=== PATIENT | male | born 1940 | race Caucasian/White ===

== ENCOUNTER 2022-08-09 08:04 | Inpatient (IN) | payer BC ==
[~2022-08-09] VITALS: Ht 165.1 cm; Wt 72.6 kg
[2022-08-09] VITALS (17 sets, daily range): BP systolic 82–132
--- NOTE | 2022-08-09 08:05 | NUR ---
Placed in room 02 . Placed on satellite project site monitor, blood pressure machine and pulse oximeter. To gown for exam. Side rails up. Report given to ANA RUSSO.
[2022-08-09] MEDS ORDERED: VANCOMYCIN HCL 1,000 MG in NS 250 ML IV ONE (08:15)
[2022-08-09] MEDS ORDERED: MEROPENEM 1 GM IVPB PREMIX 50 ML IV ONE (08:15)
[2022-08-09] MEDS ORDERED: VANCOMYCIN HCL 1000 MG/VIAL IV ONE (08:46)
--- NOTE | 2022-08-09 08:50 | NUR ---
RT NOTES 0858 BAGGED PT KANDACE 15L BVM. ORAL SXN READY. 0850 PT GOT INBUTAED BY MD LINDSAY. CO2 DETECTOR COLOR CHANGED. TARA BS HEARD. PT PLACED ON AC16,400VT PEEP +5 100%, 7.5/22CM LL. ETT CONFIRMED PLACEMENT W/ CXR. SPUTUM SAMPLE SENT TO LAB.
--- NOTE | 2022-08-09 08:50 | NUR ---
RT AT BEDSIDE W/ DR LINDSAY, PT BEING INTIBATED.
--- NOTE | 2022-08-09 08:56 | NUR ---
CHEST X RAY BEING DONE AT BEDSIDE
[2022-08-09] MEDS ORDERED: PROPOFOL DRIP 100 ML IV ONE (09:00)
[2022-08-09] MEDS ORDERED: ETOMIDATE 20 MG/ 10 ML VIAL (AMIDATE) IVP ONE (09:00)
[2022-08-09] MEDS ORDERED: SUCCINYLCHOLINE CHLORIDE 20 MG/ML(QUELICIN) IVP ONE (09:00)
[2022-08-09 09:14] LABS: BASOPHILS % (AUTO) 0.1 % (0.0-2.0); HEMOGLOBIN 14.2 g/dL (14.0-18.0); LYMPHOCYTES # (AUTO) 0.6 K/uL (1.0-5.5); LYMPHOCYTES % (AUTO) 2.6 % (20.5-51.5); MEAN CORPUSCULAR HEMOGLOBIN 29 pg (27-31); MEAN CORPUSCULAR HGB CONC 32 % (32-36); MEAN CORPUSCULAR VOLUME 91 fL (79.0-98.0); MONOCYTES # (AUTO) 1.3 K/uL (0.0-1.0); MONOCYTES % (AUTO) 5.6 % (1.7-9.3); NEUTROPHILS # (AUTO) 21.7 K/uL (1.8-7.7); PLATELET COUNT (AUTO) 378 K/uL (130-430); RED BLOOD CELL COUNT(AUTO) 4.83 MIL/uL (4.2-6.2); RED CELL DISTRIBUTION WIDTH 16.7 % (9.0-15.0); WHITE BLOOD COUNT (AUTO) 23.7 K/uL (4.8-10.8)
[2022-08-09 09:15] LABS: ALANINE AMINOTRANSFERASE 28 U/L (12-78); ALBUMIN 2.3 g/dL (3.4-4.8); ANION GAP 11 (5-15); ASPARTATE AMINOTRANSFERASE 35 U/L (10-37); CALCIUM 8.3 mg/dL (8.4-11.0); CHLORIDE 109 mmol/L (98-107); CREATININE 1.79 mg/dL (0.55-1.30); GLUCOSE 158 mg/dL (70-99); UREA NITROGEN, BLOOD 59 mg/dL (8-21)
--- NOTE | 2022-08-09 09:41 | NUR ---
DAUGHTER INFO GARY
[2022-08-09 10:25] LABS: NEUTROPHILS % (AUTO) 91.7 % (40.0-70.0)
--- NOTE | 2022-08-09 10:29 | NUR ---
PT BIB EMS FROM [facility] WITH C/O DISORIENTATION AND CONFUSION. PT HAS A HISTORY OF SEIZURES, DEPRESSION, AND GERD. AOX0 WITH BRONCHI HEARD IN BOTH LUNGS. SPO2 SATTING IN THE 80'S PT CAME IN WITH A NON-REBREATHER ON 15 L OF O2.
[2022-08-09 10:39] LABS: BILIRUBIN,URINE 2+ (NEGATIVE); BLOOD, URINE NEGATIVE (NEGATIVE); CLARITY/URINE CLEAR (CLEAR); GLUCOSE,URINE TRACE (NEGATIVE); KETONES,URINE NEGATIVE (NEGATIVE); LEUKOCYTE ESTERASE ,URINE NEGATIVE (NEGATIVE); NITRITE, URINE POSITIVE (NEGATIVE); PROTEIN URINE TRACE (NEGATIVE)
[2022-08-09 10:45] LABS: COLOR,URINE AMBER (YELLOW); UROBILINOGEN,URINE >=8 (0.2-1.0)
[2022-08-09 10:54] LABS: BACTERIA,URINE RARE /HPF (None Seen); RBC,URINE 0-3 /HPF (0-3); WBC,URINE 0-3 /HPF (0-3)
[2022-08-09 10:55] LABS: HYALINE CASTS, URINE 0-5 /LPF (None Seen); MUCUS,URINE 2+ /LPF (None Seen)
--- NOTE | 2022-08-09 13:30 | NUR ---
PROPOFAL DOSAGE INCREASE BY 5MCG TO 10 MCG/KG/ML.
[2022-08-09] MEDS ORDERED: NACL 0.9% 1,500 ML IV ONE (14:00)
--- NOTE | 2022-08-09 14:18 | NUR ---
Admit bed requested Patient will be admitted to care of Dr. MARIEE. Admitted to ICU unit. Diagnosis ACUTE RESPIRATORY FAILURE Inpatient (Yes or No) YES Observation (Yes or No) NO Orientation concerns or request close to nursing station (Yes or No) NO Covid Status NA On vent or bipap VENT Isolation requirements NO Needs a sitter NO From Home (Yes or if No enter name of facility) [facility] Requires Dialysis (Yes or No) NO Med Rec Completed (Yes of No) YES
[2022-08-09] MEDS ORDERED: SER25 PO (14:30)
[2022-08-09] MEDS ORDERED: LEVE500T9 PO (14:30)
[2022-08-09] MEDS ORDERED: TAMS-11 PO (14:30)
[2022-08-09] MEDS ORDERED: SODIUM CHLORIDE PO (14:30)
[2022-08-09] MEDS ORDERED: MULT-1117 PO (14:30)
[2022-08-09] MEDS ORDERED: POTASSIUM CHLORIDE 20 MEQ TAB.PRT.SR PO PRN (15:15)
[2022-08-09] MEDS ORDERED: NALOXONE HCL 0.4 MG/ML AMP (NARCAN) IVP PRN ×2 (15:15)
[2022-08-09] MEDS ORDERED: ACETAMINOPHEN 325 MG TABLET PO PRN ×2 (15:15→16:30)
[2022-08-09] MEDS ORDERED: MORPHINE 2 MG/ML INJ. SYRINGE IVP PRN (15:15)
[2022-08-09] MEDS ORDERED: LORazepam 2 MG/ML VIAL IVP PRN (15:15)
[2022-08-09] MEDS ORDERED: MUPIROCIN 2% TOPICAL OINTMENT 22 GM NS PRN (15:15)
[2022-08-09] MEDS ORDERED: MAGNESIUM SULFATE 50 ML IV PRN (15:15)
[2022-08-09] MEDS ORDERED: DOCUSATE SODIUM 100 MG CAPSULE PO PRN (15:15)
[2022-08-09] MEDS ORDERED: ONDANSETRON HCL 4 MG/2 ML VIAL IVP PRN ×2 (15:15→16:00)
--- NOTE | 2022-08-09 15:27 | NUR ---
Call out to DIONI niño MD for orders.
--- NOTE | 2022-08-09 15:40 | NUR ---
Patient will be admitted to care of RN. Admitted to unit. Will go to room . Belongings list completed. Complete and up to date summary report printed. SBAR report to be given at bedside with opportunity for questions. Addendum: 08/09/22 at 1618 by [email or web address] Patient will be admitted to care of Dr. Hogan. Admitted to unit. Will go to room . Belongings list completed. Complete and up to date summary report printed. SBAR report to be given at bedside with opportunity for questions.
--- NOTE | 2022-08-09 15:43 | NUR ---
S/W admitting [facility] and requested admitting physician to be changed to [facility] Dr. Jensen.
[2022-08-09] MEDS ORDERED: NOREPINEPHRINE BITARTRATE 4 MG in NS 246 ML IV PRN (18:00)
[2022-08-09] MEDS: PIPERACILLIN/TAZO 2.25G/DEX-IS 50 ML IV SCH ×2 (18:29→23:44)
[2022-08-09] MEDS: D5NS 1,000 ML IV SCH (18:29)
[2022-08-09] MEDS ORDERED: FLU VACC QS2022-23(6MOS UP)/PF 0.5 ML/SYR SYRINGE I.M. PRN (20:30)
[2022-08-09] MEDS: HEPARIN SODIUM,PORCINE 5,000 UNITS/ML VIAL SUBCUT SCH (21:00)
[2022-08-10] VITALS (29 sets, daily range): BP systolic 89–154
[2022-08-10] MEDS: D5NS 1,000 ML IV SCH ×3 (01:15→21:14)
[2022-08-10] MEDS: PIPERACILLIN/TAZO 2.25G/DEX-IS 50 ML IV SCH ×3 (05:13→17:19)
[2022-08-10 05:14] LABS: BASOPHILS % (AUTO) 0.1 % (0.0-2.0); EOSINOPHILS % (AUTO) 0.1 % (0.0-4.0); HEMATOCRIT 37.9 % (36-54); HEMOGLOBIN 12.2 g/dL (14.0-18.0); LYMPHOCYTES # (AUTO) 0.6 K/uL (1.0-5.5); LYMPHOCYTES % (AUTO) 3.8 % (20.5-51.5); MEAN CORPUSCULAR HEMOGLOBIN 29 pg (27-31); MEAN CORPUSCULAR HGB CONC 32 % (32-36); MEAN CORPUSCULAR VOLUME 91 fL (79.0-98.0); MONOCYTES # (AUTO) 0.9 K/uL (0.0-1.0); MONOCYTES % (AUTO) 5.6 % (1.7-9.3); NEUTROPHILS # (AUTO) 14.9 K/uL (1.8-7.7); NEUTROPHILS % (AUTO) 90.4 % (40.0-70.0); PLATELET COUNT (AUTO) 287 K/uL (130-430); RED BLOOD CELL COUNT(AUTO) 4.15 MIL/uL (4.2-6.2); RED CELL DISTRIBUTION WIDTH 16.4 % (9.0-15.0); WHITE BLOOD COUNT (AUTO) 16.6 K/uL (4.8-10.8)
[2022-08-10 05:42] LABS: ANION GAP 10 (5-15); CALCIUM 7.5 mg/dL (8.4-11.0); CHLORIDE 114 mmol/L (98-107); CREATININE 2.32 mg/dL (0.55-1.30); GLUCOSE 171 mg/dL (70-99); UREA NITROGEN, BLOOD 77 mg/dL (8-21)
[2022-08-10] MEDS: PANTOPRAZOLE SODIUM 40 MG/VIAL (PROTONIX) IVP SCH (08:06)
[2022-08-10] MEDS: HEPARIN SODIUM,PORCINE 5,000 UNITS/ML VIAL SUBCUT SCH ×2 (08:12→21:14)
[2022-08-10] MEDS: PROPOFOL DRIP 100 ML IV PRN ×2 (08:16→17:45)
--- NOTE | 2022-08-10 16:09 | NUR ---
Landing Worker re: director of social services referral Conversation held with ANA Wilkinson this morning about the need for the director of social services consult. Per nurse, the consult was put in due to conflicting information regarding the patient between the daughter and the SNF where he came from. I reached out to the daughter, Ericka, to complete a social service assessment of the patient however she was out with company for dinner and requested I call her back tomorrow. I advised her that I would call back tomorrow for us to discuss.
[2022-08-11] VITALS (31 sets, daily range): BP systolic 111–160
[2022-08-11] MEDS: PIPERACILLIN/TAZO 2.25G/DEX-IS 50 ML IV SCH ×4 (00:50→17:32)
[2022-08-11] MEDS: D5NS 1,000 ML IV SCH ×2 (05:31→11:07)
[2022-08-11 05:58] LABS: BASOPHILS % (AUTO) 0.1 % (0.0-2.0); EOSINOPHILS # (AUTO) 0.1 K/uL (0.0-0.4); EOSINOPHILS % (AUTO) 0.4 % (0.0-4.0); HEMATOCRIT 36.7 % (36-54); HEMOGLOBIN 11.8 g/dL (14.0-18.0); LYMPHOCYTES # (AUTO) 0.8 K/uL (1.0-5.5); MEAN CORPUSCULAR HEMOGLOBIN 29 pg (27-31); MEAN CORPUSCULAR HGB CONC 32 % (32-36); MEAN CORPUSCULAR VOLUME 92 fL (79.0-98.0); MONOCYTES # (AUTO) 0.9 K/uL (0.0-1.0); MONOCYTES % (AUTO) 6.7 % (1.7-9.3); NEUTROPHILS # (AUTO) 11.9 K/uL (1.8-7.7); NEUTROPHILS % (AUTO) 86.8 % (40.0-70.0); PLATELET COUNT (AUTO) 255 K/uL (130-430); RED BLOOD CELL COUNT(AUTO) 4.01 MIL/uL (4.2-6.2); RED CELL DISTRIBUTION WIDTH 16.6 % (9.0-15.0); WHITE BLOOD COUNT (AUTO) 13.7 K/uL (4.8-10.8)
[2022-08-11 06:16] LABS: ALANINE AMINOTRANSFERASE 25 U/L (12-78); ALBUMIN 1.7 g/dL (3.4-4.8); ANION GAP 9 (5-15); ASPARTATE AMINOTRANSFERASE 41 U/L (10-37); C-REACTIVE PROTEIN QUANT 35.9 mg/dL (0-0.5); CALCIUM 7.7 mg/dL (8.4-11.0); CHLORIDE 117 mmol/L (98-107); CREATININE 1.55 mg/dL (0.55-1.30); GLUCOSE 174 mg/dL (70-99); PHOSPHORUS 3.8 mg/dL (2.7-4.5); TOTAL BILIRUBIN 0.8 mg/dL (0.0-1.0); UREA NITROGEN, BLOOD 73 mg/dL (8-21)
[2022-08-11 06:42] LABS: ERYTHROCYTE SEDIMENTATION RATE 70 MM/HR (0-15)
--- NOTE | 2022-08-11 07:20 | NUR ---
RT NOTES FIO2 to 0.50 per titration order, will monitor pt. ANA Waldrop made aware.
[2022-08-11] MEDS: PANTOPRAZOLE SODIUM 40 MG/VIAL (PROTONIX) IVP SCH (08:08)
[2022-08-11] MEDS: HEPARIN SODIUM,PORCINE 5,000 UNITS/ML VIAL SUBCUT SCH ×2 (08:08→21:00)
--- NOTE | 2022-08-11 09:10 | NUR ---
RT NOTES FIO2 TO 0.40. Will monitor pt. RN /Tim made aware.
--- NOTE | 2022-08-11 10:26 | NUR ---
RT NOTES PEEP to 5 per order, will monitor pt. RN aware
--- NOTE | 2022-08-11 11:25 | NUR ---
RT NOTES Coordinated with RN, vent to CPAP 5 PS 10. No adverse reactions noted. Although the pt did not wake up, no apneic episodes noted. Will monitor pt.
--- NOTE | 2022-08-11 11:35 | NUR ---
RT NOTES Pt cont. to tolerate CPAP. FIO2 to 0.30. Rn aware.
--- NOTE | 2022-08-11 13:25 | NUR ---
RT NOTES end cpap pt tolerated cpap for 2 hours. average RSBI 33. did not wake up despite being off of sedation. vent back to previous settings PC 18 RR 16 +5 30%. rn aware
[2022-08-11] MEDS: 0.45% NACL 1,000 ML IV SCH ×2 (14:32→23:30)
--- NOTE | 2022-08-11 18:04 | NUR ---
GOLD COLOR RING REMOVED FROM LEFT HAND RING FINGER WITH RING CUTTERS DUE TO PATIENT FINGER EDEMA. GOLD RING SENT WITH SECURITY OXANA TO BE PLACED IN SAFE. COPY OF FORM FOR SAFE PLACED IN PATIENT CHART.
[2022-08-11] MEDS: PROPOFOL DRIP 100 ML IV PRN (18:30)
[2022-08-12] VITALS (29 sets, daily range): BP systolic 11–136
[2022-08-12] MEDS: PIPERACILLIN/TAZO 2.25G/DEX-IS 50 ML IV SCH ×4 (01:06→17:29)
[2022-08-12 05:33] LABS: BASOPHILS % (AUTO) 0.1 % (0.0-2.0); EOSINOPHILS % (AUTO) 0.3 % (0.0-4.0); HEMATOCRIT 36.8 % (36-54); HEMOGLOBIN 11.6 g/dL (14.0-18.0); LYMPHOCYTES # (AUTO) 0.6 K/uL (1.0-5.5); LYMPHOCYTES % (AUTO) 4.9 % (20.5-51.5); MEAN CORPUSCULAR HEMOGLOBIN 29 pg (27-31); MEAN CORPUSCULAR HGB CONC 31 % (32-36); MEAN CORPUSCULAR VOLUME 91 fL (79.0-98.0); MONOCYTES # (AUTO) 1.2 K/uL (0.0-1.0); MONOCYTES % (AUTO) 9.9 % (1.7-9.3); NEUTROPHILS # (AUTO) 10.7 K/uL (1.8-7.7); NEUTROPHILS % (AUTO) 84.8 % (40.0-70.0); PLATELET COUNT (AUTO) 243 K/uL (130-430); RED BLOOD CELL COUNT(AUTO) 4.04 MIL/uL (4.2-6.2); RED CELL DISTRIBUTION WIDTH 16.7 % (9.0-15.0); WHITE BLOOD COUNT (AUTO) 12.6 K/uL (4.8-10.8)
[2022-08-12 05:46] LABS: ANION GAP 11 (5-15); C-REACTIVE PROTEIN QUANT 13.7 mg/dL (0-0.5); CALCIUM 7.8 mg/dL (8.4-11.0); CHLORIDE 117 mmol/L (98-107); CREATININE 1.38 mg/dL (0.55-1.30); GLUCOSE 151 mg/dL (70-99); PHOSPHORUS 3.9 mg/dL (2.7-4.5); UREA NITROGEN, BLOOD 62 mg/dL (8-21)
[2022-08-12 07:10] LABS: ERYTHROCYTE SEDIMENTATION RATE 86 MM/HR (0-15)
[2022-08-12] MEDS: HEPARIN SODIUM,PORCINE 5,000 UNITS/ML VIAL SUBCUT SCH ×2 (08:58→21:48)
[2022-08-12] MEDS: 0.45% NACL 1,000 ML IV SCH ×2 (08:59→21:42)
[2022-08-12] MEDS: PANTOPRAZOLE SODIUM 40 MG/VIAL (PROTONIX) IVP SCH (08:59)
--- NOTE | 2022-08-12 09:47 | NUR ---
NOTIFIED DR JAMI BERMUDEZ OF BRADYCARDIA. ORDERED TO CONSULT DR JAMI MANJARREZ AND STAT EKG. DR JAMI MANJARREZ CONSULTED.
--- NOTE | 2022-08-12 10:04 | NUR ---
DR JAMI MANJARREZ AT BEDSIDE AND EXAMINED PATIENT. VIEWED EKG. ORDERED TO CONTINUE MONITORING.
[2022-08-12 10:13] LABS: FREE T4 (FREE THYROXINE) 0.9 ng/dL (0.6-1.6); THYROID STIMULATING HORMONE 1.17 uIu/mL (0.34-4.82)
--- NOTE | 2022-08-12 12:05 | NUR ---
Dietitian Recommendations * Nepro at 40 ml/hr (goal rate), Free Water Flush: per physician d/t ARABELLA via NGT Provides: 1728 kcal/day, 78 gm protein/day, and 698 ml free water/day Meets: 101% of estimated caloric needs and 107% of lower end of estimated protein needs LP, MS, RD Please refer to Nutrition Assessment for details. Addendum: 08/12/22 at [address] Amended: Links added.
--- NOTE | 2022-08-12 13:40 | NUR ---
RT NOTES per Caitlin Granados, @1318, Dr Guerin rounded, changed vent to CPAP. No distress noted. H.R remains low. Will monitor pt.
--- NOTE | 2022-08-12 14:55 | NUR ---
WOUND EVALUATION: Late note for 08/12/2022 at 1455 secondary to patient care. Wound Consult received from Dr. Espinoza Jensen. Thank you, Dr. Jensen, for the consult. Patient received in a Marko Bed with an Isoflex SHEKHAR mattress, nonverbal, nonresponsive to verbal commands, obtunded. Patient is unable to turn in bed independently. Dov Score is a . Past Medical History: Status post CVA, Chronic Vegetative State, Depression, muscle contractures, GERD, Seizure disorder, Esophagitis and COVID Pneumonia. Recent Labs: WBC 12.6, RBC 4.04, hemoglobin 11.6, hematocrit 36.8, ESR 86, sodium 150, chloride 117, BUN 62, creatinine 1.38, glucose 151, C-reactive protein 13.7, serum total protein 5.4, albumin 1.7. Microbiology: Blood culture results x2 in progress. Endotracheal sputum culture results negative. Urine culture results negative. Skin fungal culture results in progress. Intrinsic factors that delay wound healing: Severe Hypoalbuminemia, Hyperglycemia, respiratory failure, bilateral pneumonia, Acute Kidney Injury, Sepsis. Extrinsic factors that delay wound healing: Immobility. Per assessment by Dr. Jensen: IMPRESSION: * General weakness. * Altered level of consciousness. * Respiratory failure. * Bilateral pneumonia. * Sepsis. * Leukocytosis. * Acute kidney injury. * Hyperglycemia. * Hypercalcemia. * Hypoalbuminemia. Per assessment by Dr. 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 Left Distal Degroot: Excoriation, present on admission. Excoriated Degroot is dry with brown scab. No odor, no drainage. Narda-wound intact. Recommend: No dressing needed. Continue to monitor site every shift. 2. Left Lateral Malleolus: Small area of dark discoloration. No odor, no drainage. Tissue feels normal to touch, area is not soft or boggy. Skin is intact. 3. Left Lateral Mid Foot: Small area of dark discoloration. No odor, no drainage. Tissue feels normal to touch, area is not soft or boggy. Skin is intact. 4. Left Medial First Metatarsal Head: Blanchable redness. Skin is intact. 5. Right Lateral Malleolus: Small area of dark discoloration. No odor, no drainage. Tissue feels normal to touch, area is not soft or boggy. Skin is intact. Recommend: Cover sites with foam dressings for protection. Offload sites at all times. 6. Right Lateral First Metatarsal Head: Small area of dark discoloration. No odor, no drainage. Tissue feels normal to touch, area is not soft or boggy. Skin is intact. Recommend: Cover sites with foam dressings for protection. Offload sites at all times. 7. Left Back, Left Lateral to Spinal Levels T6-T8: Multiple skin tears, superficial depth. Site has 100% pink tissue. No odor, no drainage. Site measures 3.7 cm x 10.6 cm. Recommend: Cleanse site with normal saline. Apply SurePrep to narda-skin tear. Cover with oil emulsion dressing, then nonadhesive foam dressing. Secure with transparent dressings. Perform site care daily, and as needed for dressing soiling or dislodgement. 8. Left Sacral area: sDTI. Site has dark discolored skin. Surrounding tissue has blanchable redness. No odor, no drainage. Skin is intact. Site measures 14.0 cm x 7.0 cm. Recommend: [place] site with Betadine. Allow Betadine to air dry. Cover site with sacral foam dressing. Perform site care daily, and as needed for dressing soiling or dislodgment. Assess site every shift with peel and peak technique. Also recommend: Reposition patient side to side only every 2 hours with 1 pillow underneath pelvis and 1 pillow underneath trunk bilaterally (initiate turning by using an additional pillow to reposition patient left and right acute 2 hours). Off-load pressure areas with pillows for pressure re-distribution. Offload, elevate and float bilateral heels with 1 pillow lengthwise under each extremity at all times. Perform skin care and monitor skin integrity Q shift. Use moisture barrier cream on buttocks and other moisture susceptible areas QID and as needed for soiling. Place patient on a P500 low air-loss mattress.
--- NOTE | 2022-08-12 15:40 | NUR ---
RT NOTES Pt tolerated CPAP for a little over 2 hour trial. No change in mentation (did not wake up). Vent back to PC 18 RR 16 +5.
[2022-08-13] VITALS (35 sets, daily range): BP systolic 64–155
[2022-08-13] MEDS: PIPERACILLIN/TAZO 2.25G/DEX-IS 50 ML IV SCH ×2 (00:35→06:24)
[2022-08-13 05:19] LABS: BASOPHILS % (AUTO) 0.2 % (0.0-2.0); EOSINOPHILS # (AUTO) 0.1 K/uL (0.0-0.4); EOSINOPHILS % (AUTO) 0.4 % (0.0-4.0); HEMATOCRIT 36.4 % (36-54); HEMOGLOBIN 11.6 g/dL (14.0-18.0); LYMPHOCYTES % (AUTO) 7.6 % (20.5-51.5); MEAN CORPUSCULAR HEMOGLOBIN 29 pg (27-31); MEAN CORPUSCULAR HGB CONC 32 % (32-36); MEAN CORPUSCULAR VOLUME 90 fL (79.0-98.0); MONOCYTES # (AUTO) 1.7 K/uL (0.0-1.0); MONOCYTES % (AUTO) 12.3 % (1.7-9.3); NEUTROPHILS # (AUTO) 10.8 K/uL (1.8-7.7); NEUTROPHILS % (AUTO) 79.5 % (40.0-70.0); PLATELET COUNT (AUTO) 270 K/uL (130-430); RED BLOOD CELL COUNT(AUTO) 4.03 MIL/uL (4.2-6.2); RED CELL DISTRIBUTION WIDTH 16.3 % (9.0-15.0); WHITE BLOOD COUNT (AUTO) 13.6 K/uL (4.8-10.8)
[2022-08-13 06:08] LABS: ALANINE AMINOTRANSFERASE 33 U/L (12-78); ALBUMIN 1.6 g/dL (3.4-4.8); ANION GAP 10 (5-15); ASPARTATE AMINOTRANSFERASE 33 U/L (10-37); C-REACTIVE PROTEIN QUANT 28.7 mg/dL (0-0.5); CALCIUM 8.1 mg/dL (8.4-11.0); CREATININE 1.18 mg/dL (0.55-1.30); GLUCOSE 148 mg/dL (70-99); TOTAL BILIRUBIN 1.5 mg/dL (0.0-1.0); UREA NITROGEN, BLOOD 46 mg/dL (8-21)
[2022-08-13 06:14] LABS: CHLORIDE 127 mmol/L (98-107)
[2022-08-13] MEDS: LORazepam 2 MG/ML VIAL IVP PRN ×2 (06:20→21:24)
--- NOTE | 2022-08-13 06:20 | NUR ---
Patient's heart rate has increased from 75 to 120 bpm. Oral temperature 99.4, but due to neurological deficits unable to discern if discomfort is pain or anxiety/agitation. Morphine 2 mg ivp and ativan 1 mg ivp given at this time to r/o pain and agitation. will continue to monitor drug administration effectiveness.
[2022-08-13] MEDS: MORPHINE 2 MG/ML INJ. SYRINGE IVP PRN ×2 (06:22→20:45)
[2022-08-13] MEDS: 0.45% NACL 1,000 ML IV SCH ×3 (06:23→20:40)
--- NOTE | 2022-08-13 07:00 | NUR ---
Blood pressure 50/34; after rechecking BP Levophed was started . Dr Amin will be contacted to report abnormal labs and the possibility of fluid changes.
[2022-08-13 07:04] LABS: ERYTHROCYTE SEDIMENTATION RATE 94 MM/HR (0-15)
[2022-08-13] MEDS ORDERED: NOREPINEPHRINE 4 MG/4 ML VIAL IV ONE (07:08)
--- NOTE | 2022-08-13 07:51 | NUR ---
Contacted Dr Nikhil Jensen to report drop in blood pressure and to notify that Levophed was started. Orders received to change concentration of levophed to double concentration meaning 8 mg in 250 D5w instead of NS.
--- NOTE | 2022-08-13 08:00 | NUR ---
NOTED FAINT GAG RESPONSE. PATIENT NO LONGER MOVES LOWER EXTREMITIES OR SCOWLS IN RESPONSE TO PAIN. DR JAMI BERMUDEZ AWARE.
--- NOTE | 2022-08-13 08:00 | NUR ---
received report from enedina moreno. patient is now on levophed because of hypotension. heart rate elevated but trending down. call out to Dr Amin regarding sodium 160 and chloride 127, awaiting call back. Bebeto spoke with Dr abhijit Chowdhury
[2022-08-13] MEDS: NOREPINEPHRINE BITARTRATE 8 MG in D5W 242 ML IV PRN ×3 (08:18→21:43)
[2022-08-13] MEDS: PANTOPRAZOLE SODIUM 40 MG/VIAL (PROTONIX) IVP SCH (08:57)
[2022-08-13] MEDS: HEPARIN SODIUM,PORCINE 5,000 UNITS/ML VIAL SUBCUT SCH (08:59)
--- NOTE | 2022-08-13 09:37 | NUR ---
Dr Guerin rounded on patient ordered to start amiodarone drip to control heart rate and give 500ml NS bolus. Dr Jensen assessed patient and ordered to not start amiodarone drip and give cardizem.
[2022-08-13] MEDS ORDERED: NS 500 ML IV ONE (09:45)
[2022-08-13] MEDS: dilTIAZem HCL IVP 5 MG/ML VIAL IVP PRN ×2 (10:14→20:31)
--- NOTE | 2022-08-13 12:00 | NUR ---
SPOKE WITH DAUGHTER GARY ON THE PHONE AT [phone]. DISCUSSED PATIENT HISTORY AND DAUGHTER STATED THAT PATIENT WAS ALERT, VERBAL, AND [facility]. PER DAUGHTER, DEON PAL NOTIFIED HER THAT THE PATIENT BECAME UNRESPONSIVE 3 DAYS PRIOR TO TRANSFER TO [facility] ER BUT THEY DID NOT TELL HER UNTIL THE DAY OF THE TRANSFER TO ER. IN MD HISTORY AND PHYSICAL IT IS STATED THAT PATIENT IS IN CHRONIC VEGETATIVE STATE, BUT PER DAUGHTER GARY THE PATIENT WAS NOT IN THIS STATE BEFORE THE 3 DAYS PRIOR TO TRANSFER TO ER. CALLED AND NOTIFIED DR DUBOSE AND DR JAMI Gallardo
--- NOTE | 2022-08-13 14:20 | NUR ---
DAUGHTER SPOKE WITH DR DUBOSE AND DECIDED WITH [facility] CHARGE NURSE AND PRIMARY RN ON THE PHONE TO MAKE PATIENT A DNR. CODE FORM SIGNED AND IN THE CHART.
--- NOTE | 2022-08-13 14:26 | NUR ---
Noted loss of gag reflex, pupil reactivity to light, and babinski reflex. paged Dr. Guerin and notified of updates, order CT head without contrast , abg, and to refer to primary physician for neuro consult. Page sent out to Dr Mikey Doran. Awaiting call back.
--- NOTE | 2022-08-13 15:28 | NUR ---
[address] AND BACK TO ICU VIA AMBU BAG WITH 15LPM. PATIENT BACK ON VENT WITH PREVIOUS SETTINGS. SPO2 94%, HR147. NO RESPIRATORY DISTRESS NOTED.
--- NOTE | 2022-08-13 15:29 | NUR ---
CONSULTATION PAGED/CALLED Reason for Consultation: LOSS OF REFLEXES Person Who was Notified: JO ANN Consulting Physician: XOCHITL BULLOCK Actuarial Technician Specialty: [NEUROLOGY Ordering Physician: XOCHITL FARRELL
--- NOTE | 2022-08-13 15:40 | NUR ---
CT SCAN REPORT PAGED DR DUBOSE FOR RESULT OF CT SCAN OF THE BRAIN.
--- NOTE | 2022-08-13 15:50 | NUR ---
MD DR DUBOSE CALLED BACK, MADE HER AWARE OF THE RESULT OF THE BRAIN CT SCAN. SHE ASKED FOR THE PHONE NUMBER OF THE PT'S DAUGHTER LIONEL, STAFF LOOKED IT UP IN THE PT'S CHART. STATED THAT SHE WILL CALL THE FAMILY.
--- NOTE | 2022-08-13 16:11 | NUR ---
SPOKE WITH DR BULLOCK, NOTIFIED OF CT HEAD RESULTS. STATED THAT HE WILL ASSESS PATIENT WHEN HE ROUNDS AT [address] DUBOSE SPOKE WITH PATIENT DAUGHTER GARY AND NOTIFIED OF CT SCAN RESULTS. PER DR DUBOSE THE DAUGHTER DOES NOT WANT ANY SURGERY AND IS GOING TO FLY IN FROM OUT OF STATE TO SEE HER DAD BEFORE STARTING COMFORT MEASURES.
[2022-08-13] MEDS: metroNIDAZOLE 500 mg/NS 100 ML IV SCH ×2 (16:32→22:00)
--- NOTE | 2022-08-13 19:31 | NUR ---
ENDORSED CONTINUATION OF CARE TO ANA CORDOVA
[2022-08-13] MEDS ORDERED: dilTIAZem HCL IVP 5 MG/ML VIAL IVP ONE (22:00)
[2022-08-14] VITALS (19 sets, daily range): BP systolic 37–109
[2022-08-14] MEDS ORDERED: NOREPINEPHRINE 4 MG/4 ML VIAL IV ONE ×4 (00:27→07:45)
[2022-08-14] MEDS: NOREPINEPHRINE BITARTRATE 8 MG in D5W 242 ML IV PRN ×3 (00:34→06:05)
[2022-08-14 06:20] LABS: BASOPHILS # (AUTO) 0.1 K/uL (0.0-0.2); BASOPHILS % (AUTO) 0.3 % (0.0-2.0); EOSINOPHILS # (AUTO) 0.2 K/uL (0.0-0.4); EOSINOPHILS % (AUTO) 1.3 % (0.0-4.0); HEMATOCRIT 36.8 % (36-54); HEMOGLOBIN 11.5 g/dL (14.0-18.0); LYMPHOCYTES # (AUTO) 2.3 K/uL (1.0-5.5); LYMPHOCYTES % (AUTO) 13.6 % (20.5-51.5); MEAN CORPUSCULAR HEMOGLOBIN 29 pg (27-31); MEAN CORPUSCULAR HGB CONC 31 % (32-36); MEAN CORPUSCULAR VOLUME 93 fL (79.0-98.0); MONOCYTES # (AUTO) 1.5 K/uL (0.0-1.0); MONOCYTES % (AUTO) 8.8 % (1.7-9.3); PLATELET COUNT (AUTO) 244 K/uL (130-430); RED BLOOD CELL COUNT(AUTO) 3.98 MIL/uL (4.2-6.2); RED CELL DISTRIBUTION WIDTH 17.1 % (9.0-15.0); WHITE BLOOD COUNT (AUTO) 17.2 K/uL (4.8-10.8)
[2022-08-14 06:46] LABS: ALANINE AMINOTRANSFERASE 36 U/L (12-78); ALBUMIN 1.2 g/dL (3.4-4.8); ANION GAP 11 (5-15); ASPARTATE AMINOTRANSFERASE 40 U/L (10-37); CREATININE 1.62 mg/dL (0.55-1.30); GLUCOSE 178 mg/dL (70-99); TOTAL BILIRUBIN 2.6 mg/dL (0.0-1.0); UREA NITROGEN, BLOOD 44 mg/dL (8-21)
[2022-08-14 06:48] LABS: CHLORIDE 125 mmol/L (98-107)
[2022-08-14] MEDS: metroNIDAZOLE 500 mg/NS 100 ML IV SCH (06:57)
--- NOTE | 2022-08-14 07:25 | NUR ---
SBAR REPORT FROM JADEN RN, ALL CARES ASSUMED. PT INTUBATED, AC 16, PC 18, 100%, 5. HR 130, BP TRENDING DOWN. PUPILS FIXED AND DILATED. NO RESPONSE TO PAINFUL STIMULI. NO GAG REFLEX. AWAITING DAUGHTER TO FLY IN FROM [place] TO START COMFORT MEASURES.
[2022-08-14] MEDS ORDERED: NOREPINEPHRINE BITARTRATE 16 MG in D5W 242 ML IV PRN (07:45)
[2022-08-14 08:11] LABS: PHOSPHORUS 3.7 mg/dL (2.7-4.5)
[2022-08-14] MEDS: PANTOPRAZOLE SODIUM 40 MG/VIAL (PROTONIX) IVP SCH (08:18)
[2022-08-14 08:21] LABS: C-REACTIVE PROTEIN QUANT 27.7 mg/dL (0-0.5)
[2022-08-14] MEDS ORDERED: PHENYLEPHRINE HCL 50 MG in NS 245 ML IV PRN (08:30)
[2022-08-14] MEDS: 0.45% NACL 1,000 ML IV SCH (12:04)
--- NOTE | 2022-08-14 12:15 | NUR ---
DR DUBOSE TALKING WITH DAUGHTER AT BEDSIDE. DISCUSSED PLAN OF CARE. WILL START COMFORT MEASURES WHEN FAMILY IS READY.
[2022-08-14] MEDS ORDERED: MORPHINE 2 MG/ML INJ. SYRINGE IVP PRN (12:45)
--- NOTE | 2022-08-14 12:45 | NUR ---
[facility] CALL [facility], PT IS NOT A CANDIDATE. REFERENCE # [id number]. WILL CALL [facility] BACK AFTER CARDIAC TO NOTIFY.
[2022-08-14] MEDS: MORPHINE 2 MG/ML INJ. SYRINGE IVP PRN (13:21)
--- NOTE | 2022-08-14 13:50 | NUR ---
CALL TO DR DUBOSE, FAMILY IS READY FOR COMFORT CARE. DR DUBOSE CONFIRMED HER ORDERS TO TURN OFF IV DRIPS, GIVE ONE DOSE OF MORPHINE AND TERMINALLY EXTUBATE PT.
--- NOTE | 2022-08-14 14:00 | NUR ---
IV DRIPS OFF, MORPHINE ADMINISTERED AT 1355. EXTUBATED AT 1358. PT IS APNEIC. HR 106. FAMILY AT BEDSIDE.
--- NOTE | 2022-08-14 14:18 | NUR ---
RT NOTES 1358 TERMINALLY EXTUBATED PT PER FAMILY JYOTSNA AT BEDSIDE. Addendum: 08/14/22 at 1418 by Marcelina Pozo RT Amended: Links added.
--- NOTE | 2022-08-14 14:34 | NUR ---
TIME OF MONITOR SHOWS ASYSTOLE. NO RESPIRATIONS SEEN. NO PULSE PALPABLE. NO BREATH SOUNDS OR HEART SOUNDS AUSCULTATED. VERIFICATION BY ANA COLE. FAMILY AT BEDSIDE. TIME OF AT 1423.
--- NOTE | 2022-08-14 14:56 | NUR ---
[facility] CALLED [facility] TO CONFIRM CARDIAC . NO FURTHER INFORMATION REQUESTED.
--- NOTE | 2022-08-14 15:00 | NUR ---
FOOD SERVICE TEAM MEMBER CALLED CORONERS OFFICE. SPOKE WITH ALEX. PT IS NOT A CORONERS CASE.
--- NOTE | 2022-08-14 15:57 | NUR ---
SPOKE WITH DAUGHTER LIONEL OVER THE PHONE, SHE [facility] [place]. SHE WILL INITIATE CONTACT WITH HOME. WILL CALL FOR STEVEDORE DOCK.
--- NOTE | 2022-08-16 11:43 | NUR ---
LATE ENTRY from 08/13/22 Mine Engineer WOOD CUTTER received a call from textile coating machine operatorRayray Granados stating pts. daughter would like to speak to a Cloth Mender as pt. is still unresponsive and would like to discuss possibly changing the code status on file. WOOD CUTTER called daughter, Ericka in [place] who stated her father remains unresponsive and she would like to speak to the doctors to bet a better picture of her father's condition. Ericka stated her father was not always in a vegetative state as stated from a [facility] doctor. WOOD CUTTER asked Ericka if she has spoken to the attending Dr. Jensen. Ericka stated she orestes like to speak to any of her fathers doctors. WOOD CUTTER gave her Dr. Stone and Dr. Jensen's office phone numbers . WOOD CUTTER asked Ericka to contact her should she have any more questions. WOOD CUTTER will remain available as needed.
== END 2022-08-14 14:23 | DRG 870 ==
LOC: SED 08:04 → SIC 14:15
PROVIDERS: ADMIT Preventive Medicine Preventive Medicine/Occupational Environmental Medicine; ATTEND Preventive Medicine Preventive Medicine/Occupational Environmental Medicine
PROC: 0BH17EZ Insertion of Endotracheal Airway into Trachea, Via Natural or Artificial Opening (ICD-10-PCS; principal; 2022-08-09)
PROC: 5A1955Z Respiratory Ventilation, Greater than 96 Consecutive Hours (ICD-10-PCS; 2022-08-09)
PROC: 05HY33Z Insertion of Infusion Device into Upper Vein, Percutaneous Approach (ICD-10-PCS; 2022-08-09)
DX: A41.9 Sepsis, unspecified organism (principal); E43 Unspecified severe protein-calorie malnutrition; I60.9 Nontraumatic subarachnoid hemorrhage, unspecified; J69.0 Pneumonitis due to inhalation of food and vomit; R65.21 Severe sepsis with septic shock; J80 Acute respiratory distress syndrome; N17.0 Acute kidney failure with tubular necrosis; I62.00 Nontraumatic subdural hemorrhage, unspecified; G93.5 Compression of brain; G93.1 Anoxic brain damage, not elsewhere classified; N39.0 Urinary tract infection, site not specified; E87.0 Hyperosmolality and hypernatremia; Z99.11 Dependence on respirator [ventilator] status; I13.0 Hypertensive heart and chronic kidney disease with heart failure and stage 1 through stage 4 chronic kidney disease, or unspecified chronic kidney disease; G40.909 Epilepsy, unspecified, not intractable, without status epilepticus; F32.A Depression, unspecified; E88.09 Other disorders of plasma-protein metabolism, not elsewhere classified; E87.8 Other disorders of electrolyte and fluid balance, not elsewhere classified; E80.6 Other disorders of bilirubin metabolism; I50.9 Heart failure, unspecified; N18.9 Chronic kidney disease, unspecified; K21.00 Gastro-esophageal reflux disease with esophagitis, without bleeding; R13.10 Dysphagia, unspecified; I48.91 Unspecified atrial fibrillation; D64.9 Anemia, unspecified; E83.41 Hypermagnesemia; E83.51 Hypocalcemia; H70.91 Unspecified mastoiditis, right ear; Z79.899 Other long term (current) drug therapy; Z87.01 Personal history of pneumonia (recurrent); Z86.73 Personal history of transient ischemic attack (TIA), and cerebral infarction without residual deficits; Z86.16 Personal history of COVID-19; Z79.01 Long term (current) use of anticoagulants; Z68.26 Body mass index [BMI] 26.0-26.9, adult
CPT/HCPCS: 36415; 36600; 70450-TC; 71045; 76376; 80048; 80053; 81000; 82140; 82803; 82962; 83037; 83605; 83735; 84100; 84439; 84443; 84478; 85025; 85651-TC; 85730-TC; 86140; 87040; 87070-TC; 87081; 87086; 87101; 87186-TC; 87205-TC; 93005; 93306; 94002; 94003; 94640; 96361; 96365; 96368; 96375; 99291; C9113; J0696; J1644; J2060; J2185; J2270; J2370; J2543; J2704; J3370; J3490; J7050; J7060